=== PATIENT | female | born 2000 | race Hispanic/Latino ===

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

== ENCOUNTER 2020-07-22 18:58 | Emergency (ER) | payer OTHER ==
[~2020-07-22] VITALS: Ht 157.5 cm; Wt 58.0 kg
[2020-07-22 20:34] LABS: BASO % 0.4 % (0.0-1.0); EOS # 0.1 10^3/uL (0.0-0.5); EOS % 0.9 % (0.0-3.0); HEMATOCRIT 39.9 % (36.0-47.0); HEMOGLOBIN 13.7 g/dl (12.0-15.5); LYMPH % 24.5 % (24.0-44.0); MEAN CORPUSCULAR HGB CONC 34.3 g/dl (32.0-36.5); MEAN CORPUSCULAR VOLUME 90.3 fl (80.0-96.0); MONO # 0.8 10^3/uL (0.0-0.8); MONO % 9.9 % (2.0-8.0); NEUTROPHILS # 5.1 10^3/uL (1.5-8.5); NEUTROPHILS % 63.9 % (36.0-66.0); PLATELET COUNT, AUTOMATED 259 10^3/uL (150-450); RED BLOOD COUNT 4.42 10^6/uL (4.00-5.40)
[2020-07-22 21:24] LABS: BLOOD UREA NITROGEN 11 MG/DL (7-18); CALCIUM LEVEL 9.3 MG/DL (8.5-10.1); CARBON DIOXIDE LEVEL 24 MEQ/L (21-32); CHLORIDE LEVEL 103 MEQ/L (98-107); CREATININE FOR GFR 0.47 MG/DL (0.55-1.30); GLUCOSE, FASTING 76 MG/DL (70-100); HCG, SERUM QUANTITATIVE 137949 MIU/ML; POTASSIUM SERUM 4.3 MEQ/L (3.5-5.1); SODIUM LEVEL 135 MEQ/L (136-145)
--- NOTE | 2020-07-22 22:20 | REPVR ---
PROCEDURE INFORMATION: Exam: US Abdomen, Limited; Right Upper Quadrant Exam date and time: 07/22/2020 9:42 PM Age: 19 years old Clinical indication: Abdominal pain; Acute; ; Additional info: Epigastric pain, 10wks preg TECHNIQUE: Imaging protocol: US abdomen. Real time ultrasound with image documentation. Limited exam focused on the right upper quadrant. COMPARISON: CT ABD/PEL W/IV CONTRAST ONLY 07/19/2019 1:23 PM FINDINGS: Liver: The echogenicity of the liver is within normal limits. No liver lesion is identified from the images obtained. The contour of the liver is smooth. Gallbladder: The gallbladder is normal in appearance. No stones, masses, gallbladder wall thickening, or pericholecystic fluid are noted. No sonographic Novak's sign was reported by the chief ultrasound technologist. Common bile duct: The common bile duct is normal in caliber and at the level of the hailey hepatis measures 4 mm in diameter. Pancreas: The imaged portion of the pancreas is unremarkable. Right kidney: The right kidney is normal in appearance and measures 9.6 cm in length. There is no renal cortical thinning. The renal cortical echogenicity is within normal limits. No renal lesion is seen. There is no hydronephrosis. No obvious stones are seen in the renal collecting system. Intraperitoneal space: No free fluid is seen from the images obtained. IMPRESSION: No sonographic abnormality seen in the right upper quadrant of the abdomen. Electronically signed by: Aldair Ascencio On 07/22/2020 22:20:21 PM
[2020-07-22 22:37] LABS: APPEARANCE, URINE HAZY (CLEAR); BACTERIA, URINE AUTO 1+ (NEGATIVE); BILIRUBIN, URINE AUTO NEGATIVE (NEGATIVE); BLOOD, URINE BLOOD NEGATIVE (NEGATIVE); COLOR, URINE YELLOW (YELLOW); GLUCOSE, URINE (UA) AUTO NEGATIVE (NEGATIVE); KETONE, URINE AUTO 2+ mg/dL (NEGATIVE); LEUKOCYTE ESTERASE, URINE AUTO TRACE (NEGATIVE); MUCUS, URINE SMALL (NEGATIVE); NITRITE, URINE AUTO NEGATIVE (NEGATIVE); PROTEIN, URINE AUTO 1+ mg/dL (NEGATIVE); RBC, URINE AUTO 2 /HPF (0-3); SPECIFIC GRAVITY URINE AUTO 1.027 (1.002-1.035); SQUAMOUS EPITHELIAL CELL UR AU 4 /HPF (0-6); WBC, URINE AUTO 7 /HPF (0-3)
[2020-07-22] MEDS ORDERED: ONDA4TAB6 PO (23:19)
[2020-07-22] MEDS ORDERED: MIRA3350 PO (23:19)
[2020-07-22 23:35] VITALS: BP 114/67
== END 2020-07-22 23:41 | disposition home or self-care (01) ==
LOC: M ED 18:58
DX: O26.891 Other specified pregnancy related conditions, first trimester (principal); R10.9 Unspecified abdominal pain; O99.281 Endocrine, nutritional and metabolic diseases complicating pregnancy, first trimester; E86.0 Dehydration; O21.9 Vomiting of pregnancy, unspecified; Z3A.10 10 weeks gestation of pregnancy

== ENCOUNTER 2021-02-11 08:52 | Outpatient (CLI) | payer OTHER ==
[~2021-02-11] VITALS: Ht 157.5 cm; Wt 61.1 kg
[~2021-02-11 08:52] MED LIST: MIRA3350 PO; ONDA4TAB6 PO
[2021-02-11 09:09] VITALS: BP 132/82
[2021-02-11] MEDS ORDERED: TERBUTALINE SULFATE 1 MG/ML VIAL (J3105) As Ordered ONE (09:45)
[2021-02-11] MEDS ORDERED: TERBUTALINE SULFATE 1 MG/ML VIAL (J3105) SC ONE (09:45)
[2021-02-11 10:11] VITALS: BP 141/89
--- NOTE | 2021-02-11 10:26 | IPNPDOC ---
Obstetrical Progress Note Date of Service Feb 11, 2021 Subjective 20 yo G1 @ 38W2D by 1s T us with known breech presentation who presents for ECV. She was initially placed on the schedule at 37 weeks but has been pushed to today due to bed availability. she reports she is doing well, denies any painful contractions, or VL. she reports reg movements. she has no concerns today otherwise. she is RH pos. she has been NPO since midnight. GBS Negative FHT: 150, Mod taylor,+accels, -decel--Reactive NST [place]: Irregular contractions, not painful. BP: Normal TAUS: Breech presentation, head to the fundus with baby back to the maternal left. Anterior placenta, MVP 4.5cm. Procedure: risks and benefit of the ECV was discussed with patient and . 0.25mg IM of terb was given. FHT checked and was 150, buttock was elevated from the pelvis and the head was first attempted to move to the maternal right. head then got stuck in the right maternal costrophernic angle. attempt to move head to the materm left was then than, and again head got lodged in the the left maternal costrophrenic angle. between the attempts cardiac activity was checke with us and was noted to be wnl. afte r the second attempts decision was made to stop the procedure as baby was not moving we discussed that at this time i recommand CD at 39 weeks next week. will put patient;s info to my research physician. she will get a call with confirmation of date. Objective Vital Signs Date Time Temp Pulse Resp B/P (MAP) Pulse Ox O2 Delivery O2 Flow Rate FiO2 02/11/21 09:09 98.0 116 18 132/82 (99) PAULETTE TATE MD Feb 11, 2021 10:26
[2021-02-11 10:27] VITALS: BP 139/83
[2021-02-12] MEDS ORDERED: PRENTAB9 PO (21:49)
== END 2021-02-11 10:49 | disposition home or self-care (01) ==
LOC: M LDO 08:52
PROVIDERS: ATTEND Obstetrics & Gynecology
DX: O32.1XX0 Maternal care for breech presentation, not applicable or unspecified (principal); Z3A.37 37 weeks gestation of pregnancy
CPT/HCPCS: 59025; 59412; 76815; 96372; G0378; G0463; J3105

== ENCOUNTER 2021-02-12 21:09 | Inpatient (IN) | payer OTHER ==
[~2021-02-12] VITALS: Ht 157.5 cm; Wt 61.9 kg
[2021-02-12 21:33] VITALS: BP 135/88
[2021-02-12] MEDS ORDERED: PRENTAB9 PO (21:49)
[2021-02-12] MEDS ORDERED: HOME MED LIST COMPLETE! XX SCH (21:50)
--- OUTSIDE RECORDS SUMMARY | 2021-02-12 22:16 | CCD ---
Author Author [facility] Address Unknown Phone Unavailable Support Name Relationship Address Phone [facility] Next Of Kin [address] [place] [address] Unavailable CONSUELORASHAWN DANIEL Next Of Kin [address] [place] [address] RASHAWN CORDERO [facility] [address] [place] [address] Unavailable Re-disclosure Warning The records that you are about to access may contain information from federally-assisted alcohol or drug abuse programs. If such information is present, then the following federally mandated warning applies: This information has been disclosed to you from records protected by federal confidentiality rules (42 CFR part 2). The federal rules prohibit you from making any further disclosure of this information unless further disclosure is expressly permitted by the written consent of the person to whom it pertains or as otherwise permitted by 42 CFR part 2. A general authorization for the release of medical or other information is NOT sufficient for this purpose. The Federal rules restrict any use of the information to criminally investigate or prosecute any alcohol or drug abuse patient.The records that you are about to access may contain highly sensitive health information, the redisclosure of which is protected by Article 27-F of the [facility] Public Health law. If you continue you may have access to information: Regarding HIV / AIDS; Provided by facilities licensed or operated by the [facility] Office of Mental Health; or Provided by the [facility] Office for People With Developmental Disabilities. If such information is present, then the following [facility] mandated warning applies: This information has been disclosed to you from confidential records which are protected by state law. State law prohibits you from making any further disclosure of this information without the specific written consent of the person to whom it pertains, or as otherwise permitted by law. Any unauthorized further disclosure in violation of state law may result in a fine or halfway sentence or both. A general authorization for the release of medical or other information is NOT sufficient authorization for further disc losure. Medications No Information Insurance Providers Payer name Policy type / Coverage type Policy ID Covered constitution party ID Covered constitution party's relationship to johnson Policy Johnson Plan Information [facility] [id number] Problems, Conditions, and Diagnoses No Information Surgeries/Procedures No Information Results No Information Social History No Information
[2021-02-12] MEDS ORDERED: OXYTOCIN DRIP 30 UNITS in IV 1 EA IV PRN ×4 (22:25)
[2021-02-12] MEDS ORDERED: LR 1,000 ML IV SCH (22:25)
[2021-02-12] MEDS ORDERED: ceFAZolin SOD 2 GM in IV 1 EA IV ONE (22:25)
[2021-02-12 22:41] LABS: HEMATOCRIT 28.9 % (36.0-47.0); HEMOGLOBIN 9.8 g/dl (12.0-15.5); MEAN CORPUSCULAR HEMOGLOBIN 30.6 pg (27.0-33.0); MEAN CORPUSCULAR HGB CONC 33.9 g/dl (32.0-36.5); MEAN CORPUSCULAR VOLUME 90.3 fl (80.0-96.0); PLATELET COUNT, AUTOMATED 216 10^3/uL (150-450); WHITE BLOOD COUNT 7.9 10^3/uL (4.0-10.0)
--- NOTE | 2021-02-12 22:43 | HPEPDOC ---
Obstetrical History & Physical General Date of Admission Feb 12, 2021 at 22:14 History of Present Illness 20yo G1 at 38+3 known breech presentation presents to labor and delivery for con tractions. Denies vaginal bleeding. Had some clear discharge earlier today. Endorses positive movement. 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 Past Medical History Medical History right hip labrum tear Family History Significant Family History: No pertinent family hx Social History Marital Status: Family situation: Spouse/partner home * Smoker: non-smoker Alcohol: Denies Drugs: denies Abuse Violence Screening Have you been hit/kicked/slapp: No Have you been sexually assault: No Imunizations Tdap status: current Influenza Status: current Allergies Coded Allergies: No Known Allergies (Unverified , 07/19/19) Medications Scheduled No.137/Iron/Folic Acd ( Vitamin Tablet) 1 Each Tablet, 1 TAB PO DAILY Physical Examination Physical Examination GENERAL: Alert and oriented times three. BREAST: . ABDOMEN: Gravid and non-tender to touch. FETUS: Is breech by ultrasound HEART RATE: Regular rate LUNGS: nonlabored breathing EXTREMITIES: No edema. Vital Signs/I&O Vital Signs Date Time Temp Pulse Resp B/P (MAP) Pulse Ox O2 Delivery O2 Flow Rate FiO2 02/12/21 21:33 97.6 86 18 135/88 (104) Laboratory Data 24H LABS Laboratory Tests 2 02/12/21 22:17: Serology Scanned Report Hepatitis B Testing Pertinent Laboratoy Data Blood Type: A+ RBC Antibody Screen: Negative HIV: Negative Hepatitis B: Negative Rapid Plasma Reagin: Nonreactive Rubella: Immune Varicella: Nonreactive Chlamydia/Gonorrhea: Negative Group B Streptococcus: Negative Quad Screen Test: Negative Cystic Fibrosis: Negative Anatomy Ultrasound Ultrasound Date: Oct 08, 2020 Placenta Location: Anterior Normal Anatomy: Yes Placenta Previa: No Steroid Therapy Steroid Therapy: No Vaginal Examination Dilation: 3 cm Effacement: 50% Station: -2 Cervical Consistency: Soft Cervical Position: Anterior Presentation: Breech presentation Assessment Heart Rate (FHR): 120 Variability: Moderate Accelerations: Positive Decelerations: None Tocometer Contractions: Yes Frequency: regular, every 2-5 min. Multi-drug resistant Organism: No history of MDRO Assessment/Plan Assessment Shauna Giraldo is a 20-year-old (G)1 at 38+3 weeks by 8-week ultrasound. Presents to Labor and Delivery (L&D) for contractions and breech presentation. Cervix 3cm dilated. Negative ROM workup. Reactive NST. She was scheduled for delivery at 39 weeks after a failed ECV yesterday. Discussed with patient delivery at this time and she is agreeable. Plan Admit and orient. Echo Technician and consent. Diet: NPO. Group B Streptococcus (GBS) [negative]. Labs and intravenous (IV) per unit protocol. Counseled on delivery Lactated Ringers (LR): 125mL/hr. To OR for delivery Labor and Delivery Counseling Discussed r/b/a of delivery including but not limited to infection, bleeding, damage to nearby organs including bowel, bladder, ureters among others. Risk of hemorrhage including need for blood transfusion and peripartum hysterectomy. Consents signed, all questions answered and patient indicates understanding. LOW PLATA DO Feb 12, 2021 22:43
[2021-02-12 23:23] VITALS: BP 129/91
[2021-02-13] VITALS (8 sets, daily range): BP systolic 106–135; BP diastolic 56–89
[2021-02-13] MEDS ORDERED: MORPHINE PRES-FREE INJ 10 MG/10 ML VIAL (J2274) As Ordered ONE (00:31)
[2021-02-13] MEDS ORDERED: OXYTOCIN 30 UNITS IN 0.9% NaCl 500ML IV BAG (J2590) As Ordered ONE ×2 (00:33→02:03)
[2021-02-13] MEDS ORDERED: ePHEDrine SULFATE 25 MG/5 ML(5MG/ML) SYRINGE As Ordered ONE (00:33)
[2021-02-13] MEDS ORDERED: PHENYLephrine 500MCG 5ML (100MCG/ML) SYRINGE As Ordered ONE (00:33)
[2021-02-13] MEDS ORDERED: ONDANSETRON 4MG/2ML VIAL As Ordered ONE (00:46)
[2021-02-13] MEDS ORDERED: KETOROLAC 60MG 2ML VIAL As Ordered ONE (00:46)
[2021-02-13 01:13] LABS: CORD GAS HCO3 V 20.2 MEQ/L; CORD GAS O2 SAT V 91.1 %; CORD GAS PCO2 V 42.2 mmHg; CORD GAS PH V 7.298 UNITS; CORD GAS PO2 V 52.6 mmHg; CORD GAS SBC V 19.5 MEQ/L; CORD GAS TCO2 V 21.5 MEQ/L
[2021-02-13 01:16] LABS: CORD GAS HCO3 A 21.8 MEQ/L; CORD GAS O2 SAT A 59.4 %; CORD GAS PCO2 A 63.1 mmHg; CORD GAS PH A 7.156 UNITS; CORD GAS PO2 A 28.8 mmHg; CORD GAS SBC A 17.3 MEQ/L; CORD GAS TCO2 A 23.7 MEQ/L
[2021-02-13] MEDS ORDERED: RHOGAM 300 MCG (1500 IU) INJ (J2790) IM SCH (01:35)
[2021-02-13] MEDS: ACETAMINOPHEN 500 MG TAB PO SCH ×4 (01:35→18:31)
[2021-02-13] MEDS ORDERED: oxyCODONE 5MG TAB PO PRN ×2 (01:35)
[2021-02-13] MEDS ORDERED: SIMETHICONE 80MG CHEW TAB PO PRN (01:35)
[2021-02-13] MEDS ORDERED: MORPHINE 2 MG/ML 1ML VIAL (J2270) IV PRN (01:35)
[2021-02-13] MEDS ORDERED: LR 1,000 ML IV SCH ×2 (01:35→02:00)
[2021-02-13] MEDS ORDERED: OXYTOCIN DRIP 30 UNITS in IV 1 EA IV SCH (01:35)
[2021-02-13] MEDS ORDERED: PROMETHAZINE 25 MG TAB PO PRN (01:35)
[2021-02-13] MEDS ORDERED: MEASLES,MUMPS,RUBELLA VACCINE INJ (MMR-II) (90707) SC SCH (01:35)
[2021-02-13] MEDS ORDERED: ONDANSETRON 4MG/2ML VIAL IV PRN ×2 (01:35→02:00)
[2021-02-13] MEDS ORDERED: DOCUSATE SODIUM 100MG CAPSULE PO PRN (01:35)
--- NOTE | 2021-02-13 01:52 | ROOPDOC ---
[facility] Report Of Operation Report of Operation DATE OF PROCEDURE: 02/13/21 PREPROCEDURE DIAGNOSES: -38 weeks gestation - breech presentation - labor POSTPROCEDURE DIAGNOSES: - same as above status post primary low transverse delivery PROCEDURE PERFORMED: primary low transverse delivery SURGEON: Amando Smith DO SELF PAY COLLECTOR: Marianela Marie MD whose assistance with retraction and delivery of the was essential to the completion of this case ANESTHESIA: spinal ESTIMATED BLOOD LOSS: Approximately 500 mL. COMPLICATIONS: none REMARKS: none FINDINGS: live in breech position, time of [id number]; 7/8, 7# 1oz, 3200g SPECIMENS REMOVED: none DESCRIPTION OF PROCEDURE: After obtaining informed consent the patient was brought to the operating suite and prepped/draped in the usual manner. A timeout was called and the patient name, date of and procedure to be performed were verified. A transverse incision was made with the scalpel and carried down to the fascia which was then scored. The fascial incision was carried laterally with huynh scissors in both directions. The fascia was dissected from the rectus muscles superiorly and inferiorly both bluntly and sharply. The peritoneum was entered bluntly. The uterus was incised with the scalpel then entered bluntly with clear fluid noted. The sacrum was delivered and with gentle flexion of the hip each leg was delivered individually. Then each arm was individually delivered by gentle sweeping across the chest. The head delivered spontaneously after dora second arm and a loose body cord was noted. The cord was clamped and cut, good cry was noted. The was handed to the awaiting team. Cord gases were obtained. The placenta delivered intact spontaneously. The uterus was exteriorized and the interior wiped with a laparotomy sponge. The uterine incision was closed with running locking 0-vicryl. An imbricating layer of 0- vicryl was then placed. A single figure of eight stitch was placed at the right angle for hemostasis. The posterior culdesac was suctioned. Hemostasis was noted at the hysterotomy and the uterus was returned to the abdomen. Again the hysterotomy was inspected and found to be hemostatic. The peritoneum was identified and closed with running 3-0 vicryl. The fascia was closed with running 0-vicryl. The subcutaneous layer was irrigated then closed with 3-0 vicryl interrupted. The skin was closed with running 4-0 monocryl. An optifoam dressing was placed. All clots were cleared from the vagina. The patient was taken to the PACU in good condition. DO BONI Martin BRADLEY J. DO Feb 13, 2021 01:52
[2021-02-13] MEDS ORDERED: PERCOCET 5MG/325MG TAB PO PRN (02:00)
[2021-02-13] MEDS ORDERED: fentaNYL 100 MCG/2 ML INJECTION (J3010) IV PRN (02:00)
[2021-02-13] MEDS ORDERED: METOCLOPRAMIDE INJ 10MG/2ML VIAL (J2765 PER 1) IV PRN (02:00)
[2021-02-13] MEDS ORDERED: diphenhydrAMINE 25MG CAP PO ONE (05:35)
[2021-02-13] MEDS: KETOROLAC 30 MG/ML 1ML VIAL IV SCH ×3 (06:35→18:31)
[2021-02-13] MEDS: PRENATAL VITAMINS CHEWABLE TABLET PO SCH (07:22)
[2021-02-13] MEDS ORDERED: PRENATAL VITAMINS CHEWABLE TABLET PO SCH (09:00)
[2021-02-14] MEDS: ACETAMINOPHEN 500 MG TAB PO SCH ×4 (01:57→18:45)
[2021-02-14 02:21] VITALS: BP 116/66
[2021-02-14] MEDS: IBUPROFEN 800 MG TAB PO SCH ×3 (03:02→18:45)
[2021-02-14 06:00] VITALS: BP 122/69
[2021-02-14 06:31] LABS: HEMATOCRIT 25.3 % (36.0-47.0); HEMOGLOBIN 8.6 g/dl (12.0-15.5); MEAN CORPUSCULAR HEMOGLOBIN 31.4 pg (27.0-33.0); MEAN CORPUSCULAR VOLUME 92.3 fl (80.0-96.0); PLATELET COUNT, AUTOMATED 188 10^3/uL (150-450); RED BLOOD COUNT 2.74 10^6/uL (4.00-5.40)
[2021-02-14] MEDS: PRENATAL VITAMINS CHEWABLE TABLET PO SCH (07:53)
[2021-02-14 10:00] VITALS: BP 116/73
--- NOTE | 2021-02-14 11:15 | IPN ---
PROGRESS NOTE DATE: 02/14/2021 This lady is a 20-year-old 1, now para 1, admitted at 38 and 3 weeks of gestation in active labor, known to be reji breech presentation. She had a primary section livebirth female , 7 pounds 1 ounce, 3200 grams, Apgars of 7 and 8 at one and five minutes respectively. Arterial pH 7.15, base excess -8, venous pH 7.29, base excess -6. On her first day we discussed phlebitis, cystitis, mastitis, endometritis, and cellulitis, diet, exercise, pain management, perineal, breast, and wound care. Admitting hemoglobin was 9.8, hematocrit 28.9, platelets 216. Vital signs this morning: Blood pressure 116/66, respirations 18, pulse 72, temperature 97.4. Rest of examination unremarkable. Normocephalic, atraumatic. Neck: Full range of motion. Pupils equal and reactive to light. Distal pulses are symmetric. No evidence of DVT, PE, or superficial phlebitis. Chest is clear bilaterally to bases. No wheezes or rhonchi. No CVA tenderness. Abdomen soft. Four quadrant bowel sounds are noted. Uterus 2 below. Lochia is moderate. Incision clean and dry. No rashes, lesions or pruritus. No arthralgias, myalgias. No complaint of joint pain. No complaint of cough, wheeze, shortness of breath or dyspnea on exertion. No nausea, vomiting, diarrhea or constipation. Voiding well, passing gas. day one plans are for pickup medications at [place]. Two week incision check, 6 week check at [facility], breast feeding is going well. All questions were answered. 20 minute discussion. cc: [facility]
[2021-02-14 14:00] VITALS: BP 116/67
[2021-02-14 18:29] VITALS: BP 123/79
[2021-02-14 22:00] VITALS: BP 130/81
[2021-02-15] MEDS: ACETAMINOPHEN 500 MG TAB PO SCH ×2 (01:08→07:46)
[2021-02-15] MEDS: IBUPROFEN 800 MG TAB PO SCH ×2 (03:37→10:11)
[2021-02-15 06:00] VITALS: BP 113/66
[2021-02-15] MEDS: PRENATAL VITAMINS CHEWABLE TABLET PO SCH (07:46)
--- NOTE | 2021-02-15 08:08 | IPNPDOC ---
Progress Note Date of Service: Feb 15, 2021 Day#: 2 Progress Note S: States she is doing well. Reports pain well controlled. She is ambulating well, tolerating a regular diet, urinating without difficulty, reports normal bowel activities and has no breast or leg pain. States is going well. Lochia is diminishing. Ambulating well, denies dizziness, lightheadedness. O: General: Alert. Well-appearing, in no acute distress. PSYCH: Well groomed. Appropriate affect, normal mood. Conversed easily. Neuro: Oriented to time, place, and person. RESP: Lungs clear to auscultation bilaterally without wheezes, rales or rhonchi. Unlabored breathing. CV: Normal RRR, no murmur, c/w normal . No edema to bilateral upper and lower extremities. Negative calf tenderness. Breast: Soft, filling. No erythema or tenderness. Intact nipples. ABD: Soft, non-tender. BS normal x4 quad. Fundus: Firm U-2, Fundus non-tender. MSK: legs without calf tenderness or edema bilaterally SKIN: Dry, intact. Abdomen with surgical scar- no drainage noted to Opifoam dressing. A/P 20yo G 1 P 1 day 2 s/p Primary LTCS at 38+3 wks gestation for breech presentation A positive/GBS negative/RI Varicella Non-immune: plan vaccine after discharge Normal progression well VSS Undecided on control after discharge-follow up at visit. Discharge today when ready, to follow up in [facility] clinic in 2 & 6wks for incision check and PP visit. Discharge teaching completed with patient, see discharge summary. VS, I&O, 24H, Fishbone Vital Signs/I&O Vital Signs Date Time Temp Pulse Resp B/P (MAP) Pulse Ox O2 Delivery O2 Flow Rate FiO2 02/15/21 06:00 97.8 69 16 113/66 (82) 02/14/21 18:29 100 Room Air NAJMA MCMILLAN CNM Feb 15, 2021 08:08
--- NOTE | 2021-02-15 08:11 | DS.PDOC ---
Discharge Summary General Date of Admission Feb 12, 2021 at 22:14 Date of Discharge Feb 15, 2021 Discharge Summary Date of Admission: 12 Feb 2021 Admission Diagnosis: Labor at Full Term with breech Presentation Delivery Date: 13 Feb 2021 Discharge Diagnosis: Primary Low Transverse Section Muhammad gestation, live Procedures: External Monitoring Spinal Section Condition on Discharge: Stable Discharged to: Home Hospital Course: Ms. Giraldo is a 20 year old G1 now P1 who delivered a viable female at 38+3 weeks gestation via primary low transverse Section after arriving to unit in spontaneous labor with a known breech presentation. Ms. Giraldo has had an uncomplicated course. She has remained afebrile and nor motensive with diminishing lochia throughout her stay. She is ambulating well, tolerating a regular diet, urinating without difficulty, reports normal bowel activities and has no breast or leg pain. She is stable and ready for discharge. Day of discharge physical exam documented in progress note. Infant feeding at discharge is breastmilk. To follow up in the [facility] in 2 & 6 weeks. Discharge management time Spent: <30 minutes I saw and evaluated the patient, and completed the documentation personally. -MAJ Kenyatta Mcmillan CNM Vital Signs/I&Os Vital Signs Date Time Temp Pulse Resp B/P (MAP) Pulse Ox O2 Delivery O2 Flow Rate FiO2 02/15/21 06:00 97.8 69 16 113/66 (82) 02/14/21 18:29 100 Room Air Discharge Medications Scheduled No.137/Iron/Folic Acd ( Vitamin Tablet) 1 Each Tablet, 1 TAB PO DAILY, (Reported) Allergies Coded Allergies: No Known Allergies (Unverified , 07/19/19) KENYATTA MCMILLAN CNM Feb 15, 2021 08:11
== END 2021-02-15 11:50 | disposition home or self-care (01) | DRG 773 ==
LOC: M LDO 21:09 → M LDI 22:14 → M OBS 02-13 02:57
PROVIDERS: ADMIT Obstetrics & Gynecology; ATTEND Obstetrics & Gynecology
PROC: 10D00Z1 Extraction of Products of Conception, Low, Open Approach (ICD-10-PCS; principal; 2021-02-13 01:25)
DX: O32.1XX0 Maternal care for breech presentation, not applicable or unspecified (principal); Z37.0 Single live birth; Z3A.38 38 weeks gestation of pregnancy

== ENCOUNTER 2021-11-18 09:29 | Emergency (ER) | payer OTHER ==
[~2021-11-18] VITALS: Ht 157.5 cm; Wt 57.3 kg
[~2021-11-18 09:29] MED LIST changes: +PRENTAB9 PO
[2021-11-18 11:57] LABS: BASO % 0.8 % (0.0-1.0); EOS % 0.8 % (0.0-3.0); HEMATOCRIT 39.9 % (36.0-47.0); HEMOGLOBIN 12.9 g/dl (12.0-15.5); LYMPH # 1.2 10^3/uL (1.5-5.0); LYMPH % 30.6 % (24.0-44.0); MEAN CORPUSCULAR HEMOGLOBIN 29.7 pg (27.0-33.0); MEAN CORPUSCULAR HGB CONC 32.3 g/dl (32.0-36.5); MEAN CORPUSCULAR VOLUME 91.7 fl (80.0-96.0); MONO # 0.7 10^3/uL (0.0-0.8); MONO % 17.6 % (2.0-8.0); NEUTROPHILS % 50.2 % (36.0-66.0); PLATELET COUNT, AUTOMATED 281 10^3/uL (150-450); RED BLOOD COUNT 4.35 10^6/uL (4.00-5.40); WHITE BLOOD COUNT 3.9 10^3/uL (4.0-10.0)
[2021-11-18 12:39] LABS: BLOOD UREA NITROGEN 16 MG/DL (7-18); CALCIUM LEVEL 9.3 MG/DL (8.5-10.1); CARBON DIOXIDE LEVEL 28 MEQ/L (21-32); CHLORIDE LEVEL 110 MEQ/L (98-107); CREATININE FOR GFR 0.74 MG/DL (0.55-1.30); FREE THYROXINE INDEX 2.8 % (1.3-4.8); GLOMERULAR FILTRATION RATE > 60.0 (>60); GLUCOSE, FASTING 86 MG/DL (70-100); POTASSIUM SERUM 4.4 MEQ/L (3.5-5.1); SODIUM LEVEL 143 MEQ/L (136-145); T UPTAKE 33 % (30-39); THYROXINE (T4) 8.6 UG/DL (4.5-12.0)
[2021-11-18 13:01] LABS: MONO REFLEX EBV COMP NEGATIVE (NEGATIVE)
[2021-11-18] MEDS ORDERED: ONDA4TAB6 PO (13:14)
[2021-11-18 13:24] VITALS: BP 122/67
[2021-11-19 16:11] LABS: EBV VIRAL CAPSID AG IgG 31.1 U/mL (0.0-17.9); EBV VIRAL CAPSID AG IgM <36.0 U/mL (0.0-35.9)
== END 2021-11-18 13:37 | disposition home or self-care (01) ==
LOC: M ED 09:29
DX: R53.83 Other fatigue (principal); R11.0 Nausea; J02.9 Acute pharyngitis, unspecified